=== PATIENT | female | born 2000 | race Hispanic/Latino ===

== ENCOUNTER 2023-05-14 09:01 | Day surgery (SDC) | payer OTHER ==
[2023-05-14] MEDS ORDERED: Acetaminophen 500 MG TAB ONE (09:17)
[2023-05-14] MEDS ORDERED: Acetaminophen 500 MG TAB PO SCH (09:45)
[2023-05-14] MEDS ORDERED: Iron Sucrose Complex 500 MG in Sodium Chloride 0.9% 250 ML 250 ML IVPB SCH (09:45)
== END 2023-05-14 14:25 | disposition home or self-care (01) ==
LOC: CSHSDC 09:01
PROVIDERS: ATTEND Obstetrics & Gynecology
DX: O99.013 Anemia complicating pregnancy, third trimester (principal); D64.9 Anemia, unspecified; Z3A.00 Weeks of gestation of pregnancy not specified
CPT/HCPCS: 96365; 96366; J1756; J7050

== ENCOUNTER 2023-06-03 05:30 | Inpatient (IN) | payer OTHER ==
[2023-06-03 06:19] VITALS: BMI 40.2
[2023-06-03] MEDS ORDERED: Tranexamic Acid 1,000 MG/10 ML VIAL IVP PRN (06:55)
[2023-06-03] MEDS ORDERED: Carboprost 250 MCG/ML AMP IM PRN (06:55)
[2023-06-03] MEDS ORDERED: hydrALAZINE 20 MG/ML VIAL SLOW IVP PRN (06:55)
[2023-06-03] MEDS ORDERED: Lidocaine 1% (PF) 30 ML VIAL SC PRN (06:55)
[2023-06-03] MEDS ORDERED: Promethazine HCl 25 MG/ML VIAL IM PRN (06:55)
[2023-06-03] MEDS ORDERED: fentaNYL 50 mcg/mL 1 mL Vial SLOW IVP PRN (06:55)
[2023-06-03] MEDS ORDERED: Methylergonovine 0.2 MG/ML VIAL IM PRN (06:55)
[2023-06-03] MEDS ORDERED: Misoprostol 200 MCG TAB PR PRN (06:55)
[2023-06-03] MEDS ORDERED: Acetaminophen 500 MG TAB PO PRN (06:55)
[2023-06-03] MEDS ORDERED: Ondansetron PF 4 MG/2 ML Vial IVP PRN (06:55)
[2023-06-03] MEDS ORDERED: Ibuprofen 800 MG TAB PO PRN (06:55)
[2023-06-03] MEDS ORDERED: Docusate 100 MG CAP PO PRN (06:55)
[2023-06-03] MEDS ORDERED: Diphenoxylate HCl/Atropine Tablet PO PRN (06:55)
[2023-06-03] MEDS ORDERED: Butorphanol Tartrate 1 MG/ML VIAL SLOW IVP PRN (06:55)
[2023-06-03] MEDS ORDERED: Misoprostol 100 MCG TAB VAG SCH (07:00)
[2023-06-03] MEDS ORDERED: Oxytocin 30 units/NS 500 ML 500 ML IV SCH ×3 (07:00)
[2023-06-03 07:10] LABS: Hematocrit 35.8 % (34.9-44.5); Hemoglobin 11.3 g/dL (12.0-15.5); Mean Corpuscular HGB CONC 31.6 g/dL (32.0-36.0); Mean Corpuscular Hemoglobin 24.2 pg (27.0-33.0); Mean Corpuscular Volume 76.8 fl (81.6-98.3); Mean Platelet Volume 10.3 fl (7.4-10.4); Platelet Count 190 10x3/uL (150-450); RBC Distribution Width 24.7 % (11.5-14.5); Red Blood Cell (RBC) Count 4.66 10x6/uL (3.90-5.03); White Blood Cell (WBC) Count 6.6 10x3/uL (3.5-10.5)
[2023-06-03 07:37] LABS: HBSAg Index 0.22 S/CO (0-0.99); Hep B Surf Ag - L&D Non-Reactive S/CO (NonReactive)
[2023-06-03 07:38] LABS: Syphilis Antibody Nonreactive (Nonreactive); Syphilis Antibody Index 0.04 S/CO (<1.00 Non-Reactive)
[2023-06-03] MEDS ORDERED: Bupivacaine 0.25% HCL 30 ML VIAL ONE (08:00)
[2023-06-03] MEDS ORDERED: fentaNYL/Ropivacaine Epidural 100 ML ONE (08:01)
[2023-06-03] MEDS: Lactated Ringer's 1,000 ML IV SCH (19:06)
[2023-06-03] MEDS: Misoprostol 100 MCG TAB VAG SCH ×3 (19:06→21:30)
[2023-06-04] MEDS: Lactated Ringer's 1,000 ML IV SCH ×2 (00:59→02:23)
[2023-06-04] MEDS: Misoprostol 100 MCG TAB VAG SCH ×2 (01:00→13:38)
[2023-06-04] MEDS ORDERED: ePHEDrine Sulfate 50 MG/10 ML VIAL SLOW IVP PRN (02:41)
[2023-06-04] MEDS ORDERED: Lactated Ringer's 500 ML IV PRN (02:41)
[2023-06-04] MEDS ORDERED: Naloxone HCl 0.4 mg/ml Vial IVP PRN ×2 (02:41)
[2023-06-04] MEDS ORDERED: Promethazine HCl 25 MG/ML VIAL IM PRN ×2 (02:41→13:28)
[2023-06-04] MEDS ORDERED: Ondansetron PF 4 MG/2 ML Vial IVP PRN ×2 (02:41→13:28)
[2023-06-04] MEDS ORDERED: diphenhydrAMINE 50 MG/ML VIAL IVP PRN (02:41)
[2023-06-04] MEDS ORDERED: Moisturizing Cream (Eucerin) 113 GM JAR TOP PRN (02:41)
[2023-06-04] MEDS ORDERED: Communication Order-Pharmacy FS SCH (02:45)
[2023-06-04] MEDS ORDERED: fentaNYL 2 mcg/Ropivacaine 0.2% Epidural 100 ML CADD EPIDURAL SCH (02:45)
[2023-06-04 09:37] LABS: Analyzer IN Cardio CS NICU; Critical Notified Whom: MD
[2023-06-04 09:40] LABS: Analyzer IN Cardio CS NICU; Critical Notified Whom: MD; pH (Cord, venous) 7.336 (7.250-7.350)
[2023-06-04] MEDS: Acetaminophen 325 MG TAB PO PRN (10:27)
[2023-06-04] MEDS ORDERED: Milk Of Magnesia 30 ML UDCUP PO PRN (13:28)
[2023-06-04] MEDS ORDERED: diphenhydrAMINE 25 MG CAP PO PRN (13:28)
[2023-06-04] MEDS ORDERED: Benzocaine-Menthol 82.5 ML CAN TOP PRN (13:28)
[2023-06-04] MEDS ORDERED: Bisacodyl 10 MG SUPP PR PRN (13:28)
[2023-06-04] MEDS ORDERED: hydrALAZINE 20 MG/ML VIAL SLOW IVP PRN (13:28)
[2023-06-04] MEDS ORDERED: Preparation H Ointment 28 GM TUBE PR PRN (13:28)
[2023-06-04] MEDS ORDERED: Lanolin Ointment 7 GM TUBE TOP PRN (13:28)
[2023-06-04] MEDS: Ferrous Sulfate 325 MG TAB PO SCH (15:51)
[2023-06-04] MEDS: Ibuprofen 800 MG TAB PO PRN (17:00)
[2023-06-05] MEDS: Ibuprofen 800 MG TAB PO PRN (03:06)
[2023-06-05] MEDS: Acetaminophen 325 MG TAB PO PRN (06:03)
[2023-06-05] MEDS: Ferrous Sulfate 325 MG TAB PO SCH (07:47)
[2023-06-05] MEDS ORDERED: Prenatal Vitamin 1 TAB PO SCH (09:00)
[2023-06-05 11:18] VITALS: BP 117/65; TEMP 98.3
== END 2023-06-05 12:45 | disposition home or self-care (01) | DRG 807 ==
LOC: CSHLD 05:52 → CSHPP 06-04 12:27
PROVIDERS: ADMIT Family Medicine; ATTEND Family Medicine
PROC: 10D07Z6 Extraction of Products of Conception, Vacuum, Via Natural or Artificial Opening (ICD-10-PCS; principal; 2023-06-04)
PROC: 10907ZC Drainage of Amniotic Fluid, Therapeutic from Products of Conception, Via Natural or Artificial Opening (ICD-10-PCS; 2023-06-04)
PROC: 10H07YZ Insertion of Other Device into Products of Conception, Via Natural or Artificial Opening (ICD-10-PCS; 2023-06-04)
PROC: 4A133R1 Monitoring of Arterial Saturation, Peripheral, Percutaneous Approach (ICD-10-PCS; 2023-06-04)
PROC: 3E033XZ Introduction of Vasopressor into Peripheral Vein, Percutaneous Approach (ICD-10-PCS; 2023-06-04)
DX: O16.4 Unspecified maternal hypertension, complicating childbirth (principal); Z37.0 Single live birth; O99.214 Obesity complicating childbirth; E66.01 Morbid (severe) obesity due to excess calories; Z3A.38 38 weeks gestation of pregnancy; O99.02 Anemia complicating childbirth; D50.9 Iron deficiency anemia, unspecified; O76 Abnormality in fetal heart rate and rhythm complicating labor and delivery
CPT/HCPCS: 36415; 51702; 82805; 85027; 86780; 86850; 86900; 86901; 87340; J2590; J7120; S0020